=== PATIENT | male | born 1980 | race African-American/Black ===

== ENCOUNTER 2020-12-01 02:38 | Emergency (ER) | payer OTHER ==
[~2020-12-01] VITALS: Ht 160 cm; Wt 74.8 kg
[2020-12-01 02:38] VITALS: TEMP 98.5
[2020-12-01 03:46] LABS: PLATELET COUNT 289 K/uL (142-355)
[2020-12-01 03:50] LABS: POTASSIUM 2.7 mmol/L (3.6-5.2); SODIUM 137 mmol/L (136-145)
[2020-12-01 04:46] LABS: PARTIAL THROMBOPLASTIN TIME 21.9 SECONDS (24.5-33.6)
[2020-12-01 11:18] VITALS: BP 122/76
== END 2020-12-01 11:18 | disposition still patient (30) ==
LOC: ED 02:38 → EDBD 02:38 → ED 11:18
PROVIDERS: Family Medicine
PROC: 0T9B70Z Drainage of Bladder with Drainage Device, Via Natural or Artificial Opening (ICD-10-PCS; principal; 2020-12-01)
DX: F10.129 Alcohol abuse with intoxication, unspecified (principal); Y90.8 Blood alcohol level of 240 mg/100 ml or more; E87.6 Hypokalemia; K29.70 Gastritis, unspecified, without bleeding; Z20.822 Contact with and (suspected) exposure to COVID-19
CPT/HCPCS: 36415; 51702; 80053; 80307; 80320; 81000; 82150; 82271; 82272; 82550; 82553; 83690; 83986; 84484; 85027; 85610; 85730; 87635; 93005; 96361; 96365; 99284; J3411; J3475; J3490; U0003